=== PATIENT | female | born 1945 | race Caucasian/White ===

== ENCOUNTER 2019-01-04 08:27 | Outpatient (CLI) | payer OTHER | END 2019-01-04 08:37 | disposition home or self-care (01) | LOC: LAB 08:27 | DX: R19.5 Other fecal abnormalities (principal); R19.4 Change in bowel habit; K64.2 Third degree hemorrhoids; D12.9 Benign neoplasm of anus and anal canal ==

== ENCOUNTER 2019-01-18 05:55 | Day surgery (SDC) | payer OTHER ==
[~2019-01-18 05:55] MED LIST: COZAAR50 MG PO; LIPITO PO
[2019-01-18] MEDS ORDERED: PERCOCET 5-3251 EACH PO (08:26)
[2019-01-18] MEDS ORDERED: RECTICARE30 GM TOP (08:27)
== END 2019-01-18 13:25 | disposition home or self-care (01) ==
LOC: CIR.AMB 05:55
DX: D12.8 Benign neoplasm of rectum (principal)